=== PATIENT | female | born 1955 | race African-American/Black ===

== ENCOUNTER 2019-06-16 11:24 | Emergency (ER) | payer BC ==
[2019-06-16 12:03] LABS: ABSOLUTE BASOPHILS # (AUTO) 0.1 10^3/uL (0.0-0.2); ABSOLUTE EOSINOPHILS # (AUTO) 0.1 10^3/uL (0.0-0.6); ABSOLUTE LYMPHOCYTES (AUTO) 1.8 10^3/uL (0.5-4.7); ABSOLUTE MONOCYTES (AUTO) 1.4 10^3/uL (0.1-1.4); ABSOLUTE NEUT (AUTO) 8.4 10^3/uL (1.7-8.2); BASOPHILS % (AUTO) 0.9 % (0-2); EOSINOPHILS % (AUTO) 0.6 % (0-6); HEMATOCRIT 35.2 % (36.0-47.0); HEMOGLOBIN 11.7 g/dL (12.0-15.5); LYMPHOCYTES % (AUTO) 15.2 % (13-45); MEAN CORPUSCULAR HEMOGLOBIN 27.7 pg (27.0-33.4); MEAN CORPUSCULAR HGB CONC 33.3 g/dL (32.0-36.0); MEAN CORPUSCULAR VOLUME 83 fl (80-97); MONOCYTES % (AUTO) 11.8 % (3-13); PLATELET COUNT 516 10^3/uL (150-450); RED BLOOD COUNT 4.23 10^6/uL (3.72-5.28); RED CELL DISTRIBUTION WIDTH 16.4 % (11.5-14.0); SEGMENTED NEUTROPHILS % (AUTO) 71.5 % (42-78); TOTAL CELLS COUNTED % (AUTO) 100 %; WHITE BLOOD COUNT 11.8 10^3/uL (4.0-10.5)
[2019-06-16 12:23] LABS: ALKALINE PHOSPHATASE 207 U/L (38-126); ANION GAP 12 (5-19); ASPARTATE AMINO TRANSFERASE 129 U/L (14-36); BILIRUBIN,DIRECT 0.2 mg/dL (0.0-0.4); BLOOD UREA NITROGEN 17 mg/dL (7-20); CALCIUM 9.8 mg/dL (8.4-10.2); CARBON DIOXIDE 24 mmol/L (22-30); CHLORIDE 108 mmol/L (98-107); GLUCOSE 75 mg/dL (75-110); POTASSIUM 4.3 mmol/L (3.6-5.0); TOTAL PROTEIN 7.1 g/dL (6.3-8.2)
--- NOTE | 2019-06-16 13:21 | ER Document Report ---
ED General - General Chief Complaint: Low Blood Sugar Stated Complaint: WEAKNESS Time Seen by Provider: 06/16/19 13:04 - HPI Notes: Patient presents from home with generalized weakness that started when she woke this morning. She denies any pain in her chest or abdomen. Denies any unilateral weakness or sensory deficits. She does have stage IV breast cancer and had last chemotherapy approximately 1 month ago. She denies any nausea vomiting diarrhea or dysuria. She is an insulin-dependent diabetic cannot eat a lot last night and did not take her insulin this morning. No recent cough congestion or fevers or chest pain. She was given some glucose since being in the emergency department and states she is feeling somewhat better. Her blood glucose was in the low 60s upon arrival. She states her blood glucose usually runs between 110-130. - Related Data Allergies/Adverse Reactions: No Known Allergies Allergy (Unverified 06/16/19 11:29) Past Medical History - Social History Smoking Status: Never Smoker Family History: Reviewed & Not Pertinent Patient has suicidal ideation: No Patient has homicidal ideation: No - Past Medical History Cardiac Medical History: Reports: Hx Hypertension Endocrine Medical History: Reports: Hx Diabetes Mellitus Type 1 Past Surgical History: Reports: Hx Hysterectomy Review of Systems - Review of Systems Constitutional: See HPI EENT: No symptoms reported Cardiovascular: No symptoms reported Respiratory: No symptoms reported Gastrointestinal: No symptoms reported Genitourinary: No symptoms reported Female Genitourinary: No symptoms reported Musculoskeletal: No symptoms reported Skin: No symptoms reported Hematologic/Lymphatic: No symptoms reported Neurological/Psychological: No symptoms reported Physical Exam - Vital signs Vitals: Temp Resp Pulse Ox 98.3 F 23 H 98 06/16/19 11:32 06/16/19 11:32 06/16/19 11:32 - General General appearance: Appears well, Alert, Other - Able to pull herself from stretcher to listen to lungs - HEENT Head: Normocephalic, Atraumatic Eyes: Normal Conjunctiva: Normal Cornea: Normal Extraocular movements intact: Yes Pupils: PERRL - Respiratory Respiratory status: No respiratory distress Chest status: Nontender Breath sounds: Normal Chest palpation: Normal - Cardiovascular Rhythm: Regular Heart sounds: Normal auscultation Murmur: No - Abdominal Inspection: Normal Distension: No distension Bowel sounds: Normal Tenderness: Nontender - Extremities General upper extremity: Normal inspection, Normal ROM General lower extremity: Normal inspection, Normal ROM - Neurological Neuro grossly intact: Yes Cognition: Normal Orientation: AAOx4 - Psychological Associated symptoms: Normal affect Course - Re-evaluation Re-evalutation: 06/16/19 15:37 Patient 8. Was able to ambulate at her baseline. Patient feels better. Work- up negative at this time. Will be discharged and advised to check her blood sugar frequently over the next 24 to 48 hours. Return precautions provided 06/16/19 15:39 Of note, urine was sent to culture this patient does have mild number of white cells but does not have any dysuria. - Vital Signs Vital signs: Temp Pulse Resp BP Pulse Ox 98.5 F 25 H 136/56 H 98 06/16/19 15:56 06/16/19 15:56 06/16/19 15:56 06/16/19 15:56 - Laboratory Result Diagrams: 06/16/19 11:52 06/16/19 11:52 Laboratory results interpreted by me: 06/16/19 06/16/19 06/16/19 11:52 11:52 14:43 WBC 11.8 H Hgb 11.7 L Hct 35.2 L RDW 16.4 H Plt Count 516 H Absolute Neuts (auto) 8.4 H Chloride 108 H Est GFR ( Amer) 55 L Est GFR (MDRD) Non-Af 46 L AST 129 H Alkaline Phosphatase 207 H Urine Ketones 25 H Ur Leukocyte Esterase LARGE H Urine Ascorbic Acid 40 H Discharge - Discharge Clinical Impression: Hypoglycemia Condition: Good Disposition: HOME, SELF-CARE Additional Instructions: Return to the emergency department for any concerns or worsening of condition Prescriptions: Albuterol Sulfate [Proair HFA Inhalation Aerosol 8.5 gm MDI] 2 puff IH Q4H PRN #1 mdi PRN Reason:
--- NOTE | 2019-06-16 13:34 | EKG REPORT ---
SEVERITY:- BORDERLINE ECG - SINUS RHYTHM BORDERLINE T ABNORMALITIES, INFERIOR LEADS : Confirmed by: Bob Vega MD 16-Jun-2019 13:33:57
[2019-06-16 15:16] LABS: APPEARANCE,URINE SLIGHTLY-CLOUDY; BILIRUBIN,URINE NEGATIVE (NEGATIVE); COLOR,URINE STRAW; GLUCOSE, URINE NEGATIVE (NEGATIVE); KETONES,URINE 25 mg/dL (NEGATIVE); URINE SPECIFIC GRAVITY 1.025
[2019-06-16 15:17] LABS: LEUKOCYTE ESTERASE,URINE LARGE (NEGATIVE); NITRITE,URINE NEGATIVE (NEGATIVE); PROTEIN,URINE NEGATIVE (NEGATIVE); UROBILINOGEN,URINE NEGATIVE mg/dL (<2.0)
[2019-06-16 16:04] VITALS: BP 136/56
== END 2019-06-16 16:37 | disposition home or self-care (01) ==
LOC: ER 11:24
DX: E10.649 Type 1 diabetes mellitus with hypoglycemia without coma (principal); R53.1 Weakness; C50.919 Malignant neoplasm of unspecified site of unspecified female breast; I10 Essential (primary) hypertension; Z79.4 Long term (current) use of insulin; Z79.899 Other long term (current) drug therapy
CPT/HCPCS: 36415; 51702; 80053; 81001; 82962; 85025; 87086; 93005; 93010; 99285

== ENCOUNTER → 2019-07-07 | Outpatient (CLI) | payer BC ==
[2019-07-07 12:40] LABS: ALBUMIN 4.1 g/dL (3.5-5.0); ALKALINE PHOSPHATASE 337 U/L (38-126); ANION GAP 16 (5-19); ASPARTATE AMINO TRANSFERASE 222 U/L (14-36); BILIRUBIN,DIRECT 0.3 mg/dL (0.0-0.4); BILIRUBIN,TOTAL 1.1 mg/dL (0.2-1.3); BLOOD UREA NITROGEN 35 mg/dL (7-20); CALCIUM 10.3 mg/dL (8.4-10.2); CARBON DIOXIDE 22 mmol/L (22-30); CHLORIDE 110 mmol/L (98-107); CHOLESTEROL 112.61 mg/dL (0-200); POTASSIUM 5.8 mmol/L (3.6-5.0); TOTAL PROTEIN 7.7 g/dL (6.3-8.2); TRIGLYCERIDES 168 mg/dL (<150)
[2019-07-07 12:51] LABS: DIRECT LDL 60 mg/dL (<100)
[2019-07-07 12:55] LABS: GLUCOSE 64 mg/dL (75-110); VLDL CHOLESTEROL 33.6 mg/dL (10-31)
== END ==
LOC: OD 10:52
PROVIDERS: ATTEND Family Medicine
DX: I10 Essential (primary) hypertension (principal); E11.9 Type 2 diabetes mellitus without complications; E78.5 Hyperlipidemia, unspecified
CPT/HCPCS: 36415; 80053; 80061; 83036